=== PATIENT | female | born 1970 | race Caucasian/White ===

== ENCOUNTER 2017-10-05 23:25 | Emergency (ER) | payer BC ==
[~2017-10-05] VITALS: Ht 165.1 cm; Wt 69.0 kg
[2017-10-06 01:16] VITALS: BP 116/66
[2017-10-06] MEDS ORDERED: CEPH500C5 PO (01:48)
== END 2017-10-06 02:15 | disposition home or self-care (01) ==
LOC: ER 23:26
DX: L03.116 Cellulitis of left lower limb (principal); F17.200 Nicotine dependence, unspecified, uncomplicated; Z79.899 Other long term (current) drug therapy
CPT/HCPCS: 93970; 99284

== ENCOUNTER 2017-10-06 22:07 | Emergency (ER) | payer BC ==
[~2017-10-06] VITALS: Ht 165.1 cm; Wt 67.0 kg
[~2017-10-06 22:07] MED LIST: CEPH500C5 PO
[2017-10-06 22:21] VITALS: BP 115/62
== END 2017-10-07 04:23 | disposition left against medical advice (07) ==
LOC: ER 22:07
DX: R22.0 Localized swelling, mass and lump, head (principal); Z53.21 Procedure and treatment not carried out due to patient leaving prior to being seen by health care provider

== ENCOUNTER 2017-10-08 22:18 | Emergency (ER) | payer BC ==
[~2017-10-08] VITALS: Ht 167.6 cm; Wt 68.5 kg
[2017-10-08 23:49] VITALS: BP 122/87
== END 2017-10-09 00:07 | disposition home or self-care (01) ==
LOC: ER 22:19
DX: L03.116 Cellulitis of left lower limb (principal); Z79.899 Other long term (current) drug therapy
CPT/HCPCS: 99283

== ENCOUNTER 2017-10-28 03:22 | Emergency (ER) | payer BC ==
[~2017-10-28] VITALS: Ht 165.1 cm; Wt 66.0 kg
[2017-10-28 03:25] VITALS: BP 121/70
[2017-10-28] MEDS ORDERED: triamcinolone acetonide 40mg/ml inj IM ONE (04:05)
== END 2017-10-28 04:28 | disposition home or self-care (01) ==
LOC: ER 03:22
DX: R21 Rash and other nonspecific skin eruption (principal); L50.9 Urticaria, unspecified
CPT/HCPCS: 96372; 99283; J3301